=== PATIENT | male | born 1970 | race Caucasian/White ===

== ENCOUNTER 2021-03-13 04:37 | Inpatient (IN) | payer OTHER ==
[~2021-03-13] VITALS: Ht 175.3 cm; Wt 91.7 kg
--- NOTE | ~2021-03-13 | HC ---
[facility] [place] [address] CONSULTATION Name: JOSE CAREY JR Room #: 208-P [facility] IN M.R.#: [id number] Admission: 03/13/21 Attend Phys: Heri Garcia Discharge: Date of : 70 Report #: [id number] THIS REPORT FOR: cc: Fer Yoder MD, John M. MD Forman, John M. MD ~ DOC #: [id number] Fer Yates MD DATE OF SERVICE: 03/13/2021 HISTORY OF PRESENT ILLNESS: We were asked to see the patient by the hospitalist. The patient was transferred from [place] with diagnosis of esophageal perforation. The patient states that he had swallowing difficulty, choking on some rice and toasts that he had prepared. The patient was unable to swallow and had to regurgitate the food at the outside hospital. Apparently, a CT scan showed air in the mediastinum and the patient was sent to this facility. The patient states that he has had ____ allergy to PENICILLIN if he did not catch that already. PAST MEDICAL HISTORY: Denies diabetes mellitus and hypertension. FAMILY HISTORY: Positive for diabetes in grandfather, hypertension in father. REVIEW OF SYSTEMS: GENERAL: The patient denies fever or chills. EYES: Denies visual change. HENT: Denies headache, hearing problems, sinus problems. RESPIRATORY: Denies shortness of breath. CARDIAC: Denies chest pain. GASTROINTESTINAL: As mentioned in current history, the patient also has had endoscopy in the past for approximately 10 years ago, but states that it was normal. GENITOURINARY: Denies urgency, frequency, blood. MUSCULOSKELETAL: Problems related to Lyme disease. NEUROLOGIC: Denies specific motor or sensory dysfunction. ENDOCRINE: Denies goiter, palpitations. PHYSICAL EXAMINATION: GENERAL: The patient is in bed, seems comfortable. VITAL SIGNS: Temperature 36.9, heart rate 80, blood pressure 126/78, pulse ox 100 on room air. HEENT: No scleral icterus. No arcus. NECK: No mass, no bruit. CHEST: Clear to auscultation. HEART: Rhythm regular. [facility] [address] [place] [address] CONSULTATION Name: JOSE CAREY Room #: 208-[facility] IN ..#: [id number] Admission: 03/13/21 Attend Phys: Heri Garcia Discharge: Date of : 70 Report #: [id number] ABDOMEN: Soft, no mass, no tenderness. EXTREMITIES: No clubbing, cyanosis or edema. VASCULAR: 2+ dorsalis pedis pulses bilaterally. MUSCULOSKELETAL: No obvious bone or joint asymmetry or deformity. NEUROLOGIC: No motor or sensory dysfunction. SKIN: No rash or infection. PSYCHIATRIC: Shows insight into problem, oriented x 3, answers questions appropriately. We note that the outside CT scan showed a single gas bubble outside the esophagus. I am suspicious that this was a minor perforation and that oral contrast swallow once done will not show extravasation. In any case, I suggest that we obtain a Gastroenterology consult. It is unusual for the patient to have swallowing difficulty with such a minor provocation (rice and toasts) rather than a meat bolus and there may be some preexisting stricture that needs to be addressed either now or in the future. If indeed a perforation is seen, then GI consult would be appropriate to consider covered stent. In any event, I am not sure that Surgery has anything to offer other than these recommendations, but we will follow the patient with you. Thank you for the consult. MD JHONATAN Beltran/PANFILO/DREW By: 0826 Fer Yates MD /nt
[2021-03-13 05:38] VITALS: BP 126/78
[2021-03-13] MEDS ORDERED: MELOXICAM15 MG PO (07:19)
--- NOTE | 2021-03-13 07:28 | NUR ---
ASSESSMENTS CHARTED, MEDS CHARTED GIVEN. PATIENT ARRIVED A DIRECT UNIT AT 0530. PATIENT SETTLED INTO ROOM AND ADMITTED INTO COMPUTER. MEDS REVIEWED. PLACED PATIENT ON FALL PRECAUTIONS. GAVE REPORT TO ONCOMING NURSE.
[2021-03-13 09:00] LABS: HEMATOCRIT 37.2 % (42.0-52.0); HEMOGLOBIN 12.5 gm/dL (14.0-18.0); MCH 29.6 pg (26.0-34.0); MCHC 33.7 g/dL (28.0-37.0); MCV 87.9 fL (80.0-100.0); RBC 4.23 mil/uL (4.50-6.00); RDW 13.3 % (10.5-14.5); WBC 7.3 thou/uL (4.0-11.0)
[2021-03-13 09:10] LABS: CALCIUM 8.7 mg/dL (8.5-10.1); CREATININE 1.4 mg/dL (0.7-1.3); MAGNESIUM 1.7 mg/dL (1.8-2.4); POTASSIUM 4.2 mmol/L (3.5-5.1)
[2021-03-13 12:05] VITALS: BP 123/74
[2021-03-13 15:15] VITALS: BP 114/74
--- NOTE | 2021-03-13 16:24 | NUR ---
ASSUMED CARE SHIFT CHANGE. VSS. DENIES PAIN. PT HAD ESOPHAGRAM THIS SHIFT- REFER TO RESULTS. PT TO REMAIN NPO FOR MONITORING. FAMILY AT BEDSIDE, UPDATED ON POC. HOPEFUL FOR DC IN AM. PT PREFERS TO HAVE [facility]. WILL RELAY TO PHYSICIAN. CONT POC, DENIES NEEDS CURRENTLY. WILL PASS ON REPORT TO NOC RN.
[2021-03-13 19:52] VITALS: BP 124/72
[2021-03-14 05:12] VITALS: BP 104/53
[2021-03-14 07:29] VITALS: BP 108/52
--- NOTE | 2021-03-14 08:02 | NUR ---
PATIENT IS HOPING TO GO HOME TODAY.DENIES PAIN AND DENIES NEEDS.MONITOR SHOWS SB.POC CONTINUED.
[2021-03-14 11:00] VITALS: BP 118/67
[2021-03-14 11:26] LABS: CALCIUM 8.6 mg/dL (8.5-10.1); CREATININE 1.2 mg/dL (0.7-1.3); POTASSIUM 4.2 mmol/L (3.5-5.1)
--- NOTE | 2021-03-14 11:48 | NUR ---
met with patient who admits with esophageal tear. Patient admits from [employer] [facility] [employer] [facility]. works at [employer]. Patient and live in home. Patient in process of obtaing disability. Has been working on disability for some time. Patient has an attorney general he is working with for process. Patient has PCP Dr Yoder in [place]. He does not have health insurance. He reports he has lyme disease. Plan for patient to discharge home independently
[2021-03-14 16:35] VITALS: BP 132/85
[2021-03-14] MEDS ORDERED: PROTONIX40 M2 PO (16:37)
[2021-03-14] MEDS ORDERED: CARAFATE1 GM PO (16:37)
[2021-03-14 16:43] VITALS: BP 132/85
[2021-03-14] MEDS ORDERED: CARAFATE 11 GM/10 M1 PO (16:52)
--- NOTE | 2021-03-14 17:24 | NUR ---
ASSUMED CARE SHIFT CHANGE. VSS. EGD THIS SHIFT, REFER TO RESULTS. PT NOLVIA DIET WELL. DC ORDERS IN . DISCUSSED WITH PT, COMMUNCIATES UNDERSTANDING. IV REMOVED TELE REMVOED. PT LEFT WITH ALL BELONINGS.
--- NOTE | 2021-03-15 12:42 | P ---
[facility] [place] [address] PROCEDURE REPORT Name: JOSE CAREY JR Room #: 208-[facility] IN .R.#: [id number] Admission: 03/13/21 Attend Phys: Heri Zenon Garcia Discharge: 03/14/21 Date of : 70 Report #: [id number] THIS REPORT FOR: cc: Fer Yoder MD, John M. MD McElhinney, Christian C. MD ~ DOC #: [id number] Sarath David MD DATE OF SERVICE: 03/14/2021 PROCEDURE PERFORMED: Upper endoscopy with biopsies. HISTORY OF PRESENT ILLNESS: The patient is a 50-year-old male with a history of intermittent dysphagia, who had an impaction over the weekend at [facility], was seen in the Emergency Room, did have an episode of nausea and vomiting of some liquids. He did not undergo an upper endoscopy at that time, he did have some bloody emesis after the food was dislodged. A CT scan of his chest, abdomen and pelvis was performed. A small bubble of free air was seen in the abdomen suggesting the possibility of a perforation. He was transferred here for further evaluation. He has been n.p.o. since that time. He underwent an upper GI yesterday here showing no evidence of esophageal rupture or extravasation. No stricture or obstruction was noted. Plan is for upper endoscopy today. The patient does take omeprazole on a daily basis for history of reflux. DESCRIPTION OF PROCEDURE: The risks and benefits of the procedure were explained to the patient, those risks including but not limited to bleeding, perforation and the risk of sedation. He understood these risks and gave informed consent. Sedation was given using propofol per anesthesia. Next, using a standard Olympus upper endoscope, the scope was placed in the patient's mouth and advanced under direct vision through the esophagus, stomach and into the second portion of the duodenum. The larynx was normal in appearance. The upper esophagus was normal. In the mid and distal esophagus; however, changes of possible eosinophilic esophagitis were noted as well as a long linear large clean white based ulcer. This was approximately 8 cm in length. There was no evidence of active bleeding. Biopsies were obtained again to rule out eosinophilic esophagitis as well as herpes and CMV. In the distal esophagus, grade A erosive esophagitis was noted at the GE junction as well as a possible short segment of Martinez's. Biopsies were also obtained in this area. The scope was then advanced into the stomach. Overall, the gastric mucosa was normal. The pylorus was normal and patent. The duodenal bulb, first and second portion were all normal. Because of the patient's long linear ulceration in his esophagus, I did not proceed with esophageal dilation today. The scope was then withdrawn and the procedure terminated. The patient tolerated the procedure well. [address] [address] PROCEDURE REPORT Name: JOSE CAREY JR Room #: 208-P [facility] IN M.R.#: [id number] Admission: 03/13/21 Attend Phys: Heri Garcia Discharge: 03/14/21 Date of : 70 Report #: [id number] IMPRESSION: 1. Large long linear ulceration involving the mid to distal esophagus. This may have been secondary to a Marley-Jackson tear, which is now in the process of healing as the patient did have episodes of vomiting recently after a food impaction. 2. Possible eosinophilic esophagitis. 3. Grade A erosive esophagitis with possible Martinez's esophagus. RECOMMENDATIONS: 1. Await biopsy results. 2. We will start a full liquid diet as tolerated. 3. Continue PPI therapy, advanced to b.i.d. and then add liquid Carafate for the next 2 weeks. Would recommend a repeat upper endoscopy in approximately 1-2 months and at that time, we will likely proceed with dilation. Thank you for allowing me to participate in his care. Sarath David MD CCM/YVETTE <ELECTRONICALLY SIGNED> By: Sarath David MD 03/15/21 [id number] Sarath David MD /chelsi
== END 2021-03-14 17:45 | disposition home or self-care (01) | DRG 368 ==
LOC: 2N 04:37
PROVIDERS: Hospitalist; Nurse Practitioner Family; ADMIT Hospitalist; ATTEND Hospitalist
PROC: 0DB58ZX Excision of Esophagus, Via Natural or Artificial Opening Endoscopic, Diagnostic (ICD-10-PCS; principal; 2021-03-14)
DX: K22.3 Perforation of esophagus (principal); K22.11 Ulcer of esophagus with bleeding; N17.9 Acute kidney failure, unspecified; K21.9 Gastro-esophageal reflux disease without esophagitis; F32.9 Major depressive disorder, single episode, unspecified; M79.7 Fibromyalgia; R13.0 Aphagia; Z88.0 Allergy status to penicillin; Z83.3 Family history of diabetes mellitus; Z82.49 Family history of ischemic heart disease and other diseases of the circulatory system; Z90.49 Acquired absence of other specified parts of digestive tract
CPT/HCPCS: 10081; 62110; 62900; 70005